=== PATIENT | female | born 1980 | race Two or more races ===

== ENCOUNTER 2024-01-16 18:31 | Emergency (ER) | payer OTHER ==
[~2024-01-16] VITALS: Ht 154.9 cm; Wt 109.0 kg
[2024-01-16 19:13] LABS: BASOPHILS # (AUTO) 0.1 X10'3 (0-0.2); BASOPHILS % (AUTO) 0.7 % (0-1); EOSINOPHILS # (AUTO) 0.3 X10'3 (0-0.9); EOSINOPHILS % (AUTO) 2.4 % (0-6); HEMATOCRIT 24.3 % (35.0-45.0); HEMOGLOBIN 7.4 g/dl (12.0-16.0); LYMPHOCYTES # (AUTO) 2.8 X10'3 (1.1-4.8); LYMPHOCYTES % (AUTO) 26.6 % (21-51); MEAN CORPUSCULAR HEMOGLOBIN 18.3 PG (27.0-31.0); MEAN CORPUSCULAR HGB CONC 30.3 g/dL (33.0-36.5); MEAN CORPUSCULAR VOLUME 60.3 FL (78-98); MEAN PLATELET VOLUME 8.4 FL (7.4-10.4); MONOCYTES # (AUTO) 0.8 X10'3 (0-0.9); MONOCYTES % (AUTO) 7.9 % (2-12); NEUTROPHILS # (AUTO) 6.5 X10'3 (1.8-7.7); NEUTROPHILS % (AUTO) 62.4 % (42-75); PLATELET COUNT 482 X10'3 (140-440); RED BLOOD COUNT 4.03 X10'6 (4.20-5.60); RED CELL DISTRIBUTION WIDTH 19.8 % (11.5-14.5); WHITE BLOOD COUNT 10.5 X10'3 (4.5-11.0)
[2024-01-16 19:22] LABS: ALANINE AMINOTRANSFERASE 25 U/L (12-78); ALBUMIN 3.4 G/DL (3.4-5.0); ALBUMIN/GLOBULIN RATIO 0.8 (1.1-1.5); ALKALINE PHOSPHATASE 74 IU/L (46-116); ANION GAP 10 (8-16); ASPARTATE AMINO TRANSFERASE 13 U/L (10-37); BILIRUBIN,TOTAL 0.3 MG/DL (0.1-1.0); BLOOD UREA NITROGEN 12 MG/DL (7-18); BUN/CREATININE RATIO 18.8 (10.0-20.0); CALCIUM 8.6 MG/DL (8.5-10.1); CHLORIDE 105 MMOL/L (99-107); CREATININE 0.64 MG/DL (0.40-0.90); GLUCOSE 102 MG/DL (70-104); POTASSIUM 3.6 MMOL/L (3.5-5.1); SODIUM 141 MMOL/L (135-145); TOTAL PROTEIN 7.7 G/DL (6.4-8.2); eCRCL 86 ML/MIN; eGFR > 90 ML/MIN
[2024-01-16 19:30] LABS: PRO BRAIN NATRIURETIC PEPTIDE 71 PG/ML (0-125)
[2024-01-16 20:23] LABS: ANISOCYTOSIS 2+; HYPOCHROMASIA 1+; MICROCYTOSIS 2+; PLATELET ESTIMATE INCREASED; POLYCHROMASIA FEW
[2024-01-16 20:24] LABS: STOMATOCYTES FEW
[2024-01-16 20:50] LABS: HCG SERUM QL NEGATIVE
[2024-01-16 21:00] LABS: BILIRUBIN,URINE NEGATIVE (Neg); CLARITY,URINE CLEAR (Clear); COLOR,URINE STRAW (Yellow); GLUCOSE, URINE NEGATIVE (Neg); KETONES,URINE NEGATIVE (Neg); LEUKOCYTE ESTERASE ,URINE NEGATIVE (Neg); NITRITES, URINE NEGATIVE (Neg); OCCULT BLOOD,URINE TRACE-INTACT (Neg); PH,URINE 6.5 (4.8-8.0); PROTEIN,URINE NEGATIVE (Neg); UROBILINOGEN,URINE 0.2 E.U/dL (0.2-1.0)
[2024-01-16 21:03] LABS: URINE HCG NEGATIVE (NEG)
[2024-01-16] MEDS: normal saline 1000ml 1,000 ML IV ONE (21:18)
[2024-01-16 21:22] LABS: UA COLLECTION TYPE URINAL
[2024-01-16 21:26] LABS: BACTERIA,URINE NONE SEEN /HPF (Neg); MUCUS STRANDS NONE SEEN /LPF (Neg); RBC,URINE 0-2 /HPF (0-2); SQUAMOUS EPITHELIAL CELL,UR FEW /LPF (FEW); WBC,URINE 0-4 /HPF (0-4)
[2024-01-16] MEDS: medroxyprogesterone acet. 2.5mg tablet PO ONE (23:20)
[2024-01-16] MEDS: iron polysaccharide complex 150mg capsule PO ONE (23:43)
[2024-01-17] MEDS ORDERED: FERR-119 PO (01:25)
[2024-01-17] MEDS ORDERED: NORG1TAB12 PO (01:25)
[2024-01-17 01:28] VITALS: BP 141/86; PULSE 89; RESP 17; TEMP 98.5
[2024-01-17 01:43] VITALS: BP 141/73; PULSE 76; RESP 17; TEMP 98.3
[2024-01-17 02:15] VITALS: BP 130/72; PULSE 74; RESP 12; TEMP 98.2
[2024-01-17 03:25] VITALS: BP 138/78; PULSE 68; RESP 12; TEMP 98.3
[2024-01-17 03:35] VITALS: BP 138/78; PULSE 67; RESP 12; TEMP 98.2; O2SAT 94
== END 2024-01-17 03:37 | disposition home or self-care (01) ==
LOC: ER 18:32
DX: R07.89 Other chest pain (principal); D64.9 Anemia, unspecified; Z79.899 Other long term (current) drug therapy
CPT/HCPCS: 36415; 36430; 76856; 80053; 81001; 81025; 83880; 84484; 84703; 85008; 85025; 86885; 86900; 86901; 86920; 93005; 93976; 96360; 99285; J7030; P9016